=== PATIENT | female | born 1985 | race Caucasian/White ===

== ENCOUNTER 2018-09-18 19:01 | Emergency (ER) | payer OTHER ==
[~2018-09-18] VITALS: Ht 157.5 cm; Wt 71.7 kg
[2018-09-18 19:12] VITALS: BP 146/97
[2018-09-18] MEDS ORDERED: LIDOCAINE-MPF 1%, 5ML INFIL ONE (19:30)
[2018-09-18] MEDS ORDERED: LIDOCAINE-MPF 1%, 5ML ONE (19:42)
[2018-09-18] MEDS ORDERED: METF500T17 PO (20:08)
[2018-09-18] MEDS ORDERED: DIPH,PERTUSS(ACELL),TET VAC/PF 0.5 ML IM-VACC ONE ×2 (20:30→20:40)
== END 2018-09-18 21:09 | disposition home or self-care (01) ==
LOC: ED 21:06
DX: S61.211A Laceration without foreign body of left index finger without damage to nail, initial encounter (principal); W26.0XXA Contact with knife, initial encounter; Y93.89 Activity, other specified; Y92.009 Unspecified place in unspecified non-institutional (private) residence as the place of occurrence of the external cause; Y99.8 Other external cause status
CPT/HCPCS: 12001; 90471; 90715